=== PATIENT | female | born 2000 | race Caucasian/White ===

== ENCOUNTER 2021-01-07 02:05 | Day surgery (SDC) | payer OTHER, SELFPAY ==
[2020-12-31 15:37] VITALS: BMI 25.7
--- NOTE | 2021-01-05 08:32 | PM.IMHP ---
H&P: HPI History of Present Illness Date/Time: 01/05/21 08:32 patient presents for planned tonsillectomy. No changes in symptoms or medical history. Chief Complaint: chronic tonsillitis, recurrent tonsillitis Review of Systems Constitutional: Constitutional: Denies fatigue, Denies fever(s) and Denies lethargy Eyes: Eyes: Denies blurry vision and Denies change in vision ENT: Reports as per HPI Cardiovascular: Cardiovascular: Denies chest pain Respiratory: Respiratory: Denies cough Endocrine: Endocrine: Denies fatigue Hematologic/Lymphatic: Hematologic/Lymphatic: Denies easy bleeding, Denies easy bruising and Denies lymphadenopathy Allergic/Immunologic: Allergic/Immunologic: Denies seasonal rhinorrhea FOR[facility], [facility] Family History Family History Father Family history of alcoholism Social History Social History Smoking status: Never smoker Alcohol intake: never Substance use: current Substance use type: marijuana Other substance usage details: ONCE A MONTH Spiritual care concerns: No Meds Home Medications and Allergies Home Medications Medication Instructions Recorded Confirmed Type No Home Medications 06/06/19 12/31/20 History Allergies Allergy/AdvReac Type Severity Reaction Status Date / Time No Known Allergies Allergy Verified 12/31/20 16:08 Exam Const: General: cooperative, healthy appearing, comfortable, well developed and alert HENMT: Head: normal to inspection, normocephalic and atraumatic Ears: hearing grossly normal bilaterally, external ears normal, TM's normal bilaterally and EAC's normal General nose exam: Normal external nose present, Normal nares present, No nasal polyps present, Normal nasal mucous membranes and turbinates present and Normal septum present Face and sinus: normal facial exam Mouth: Yes Normal oral and palatal mucosa present, Yes lip normal, Yes tongue normal, Yes oropharynx normal and Yes moist mucous membranes Teeth and gingiva: dentition normal and gingiva normal Throat: posterior oropharynx normal, tonisls abnormal ( 3+ edematous cryptic stones) and uvula midline Eyes: General: appearance normal, both eyes and all related structures Periorbital: periorbital findings normal Eyelids: eyelids normal Conjunctivae: conjunctivae normal Sclera: sclerae normal Neck: Neck: normal visual inspection, full ROM and no lymphadenopathy Thyroid: thyroid normal Lymphatic: no lymphadenopathy noted Resp: Effort & Inspection: normal respiratory effort and able to speak in complete sentences Cardio: Jugular venous distension: no JVD Neuro: Cranial nerves: Yes CN's II-XII intact bilaterally Assessment and Plan Assessment and plan (1) Chronic tonsillitis: Code(s): J35.01 - Chronic tonsillitis Status: Acute Assessment and Plan: plan is for the OR for tonsillectomy. The risks were discussed in great detail including bleeding infection postoperative bleeding 3-5% need for further procedures tongue pain tongue numbness dental pain throat pain halitosis ear pain need for time off of work need for decreased activity. Patient voiced understanding of these risks and agreed (2) Recurrent tonsillitis: Code(s): J03.91 - Acute recurrent tonsillitis, unspecified Status: Acute
[2021-01-07] VITALS (7 sets, daily range): BP systolic 99–120; BP diastolic 50–81; PULSE 68–90; RESP 13–16; TEMP 36–36.9; O2SAT 100
[2021-01-07] MEDS: LACTATED RINGERS 1,000 ML 30 ML IV CONT (06:38)
--- NOTE | 2021-01-07 07:02 | WPDHPUPDATE1 ---
History and Physical Update Update Date/Time: 01/07/21 07:02 History and Physical has been reviewed, including an updated exam of the patient. There are NO changes in the patient's condition. Risks, benefits, and alternatives have been discussed and questions answered. Patient agrees to proceed with procedure.
--- NOTE | 2021-01-07 07:06 | WPDANESEPPF ---
Anes - Initial Pre Proc Eval Procedure: Operation Date: 01/07/21 07:30 Proposed Procedures p Tonsillectomy - Johnny Nash MD Date/Time: 01/07/21 07:06 Surgeon: Johnny Nash MD Pre Op Diagnosis: hypertrophic tonsils Patient Data Age: 20 Gender: F Height: 1.6 m Weight: 65.77 kg Allergies Allergy/AdvReac Type Severity Reaction Status Date / Time No Known Allergies Allergy Verified 12/31/20 16:08 Home Medications Medication Instructions Recorded Confirmed Type No Home Medications 06/06/19 12/31/20 History Patient hx anesthesia problems: none Family hx anesthesia problems: none PMFSH Past Medical History Medical History (Updated 01/07/21 @ 07:06 by Aric Parson MD) Overweight Surgical History Surgical History (Updated 01/07/21 @ 07:06 by Aric Parson MD) History of appendectomy Family History Family History Father Family history of alcoholism Social History Social History Smoking status: Never smoker Alcohol intake: never Substance use: current Substance use type: marijuana Other substance usage details: ONCE A MONTH Living arrangements: with family Spiritual care concerns: No Anes - Eval Final PreProcedure Day of Procedure 01/07/21 07:06 Patient weight: overweight Heart: regular rate and rhythm Lungs: clear to auscultation Airway: Mallampati scale class II Neurological: alert and oriented Last oral intake: >/= 8 hours ASA classification: II Emergent: no Anesthetic plan: proceed Anesthesia type and monitoring: general ETT and standard monitoring Informed Consent: The patient's anesthetic plan and its attendant risks and benefits were discussed with the patient/family/POA. Questions were solicited and answers provided to the satisfaction of the patient/family/POA.
[2021-01-07] MEDS: ACETAMINOPHEN 500 MG TABLET 1000 MG PO (07:35)
--- NOTE | 2021-01-07 08:01 | W.PM.PROC2 ---
Procedure Note - Detailed Date of Procedure 01/07/21 Pre-op Diagnosis hypertrophic tonsils, chronic tonsillitis, Recurrent tonsillitis Post-op Diagnosis same Procedure Performed tonsillectomy Surgeon Johnny Nash MD Adult Care Provider none Anesthesia general Indications recurrent tonsillitis chronic tonsillitis tonsillar hypertrophy Findings 2+ tonsils cryptic stones present endophytic Description of Procedure the patient was correctly identified and consent was verified in the preoperative holding area. The patient was then brought to the operating room and a time-out was performed. General anesthesia was induced and endotracheal tube was secured the patient's airway. The patient was then prepped and draped for the aforementioned procedures. A McIvor mouth gag was inserted in the airway bring the tonsils into view with the aforementioned findings noted the left was grasped with a curved Allis forceps and dissected in extracapsular plane using Bovie electrocautery at a setting of 10. Hemostasis was achieved using the intermittent application of Bovie suction electrocautery. The exact same procedure was performed on the right side with the exact same findings, the right tonsil was slightly larger and slightly more endophytic. The McIvor mouth gag was then lowered for 30 seconds and reopened reveal no bleeding. I performed all dictated portions of the procedure hemostasis was excellent there were no immediate complications care of the patient was turned over to Anesthesiology. Estimated Blood Loss 5 Drains No Packing No Pathology yes Complications No immediate complications Condition stable Disposition PACU
[2021-01-07] MEDS: fentaNYL CITRATE INJ (*CRX) 100 MCG/2 ML VIAL 25 MCG IV PUSH ×4 (08:23→08:43)
--- NOTE | 2021-01-07 08:34 | SUR.PHASEI ---
PT DROWSY, TALKATIVE. RESP EVEN UNLABORED. HOB ELEVATED 30 DEGREES.
== END 2021-01-07 10:05 | disposition home or self-care (01) ==
PROVIDERS: PCP Family Medicine; Visit Provider Otolaryngology
PROC: (CPT 42826; principal; 2021-01-07 07:30)
DX: J35.01 Chronic tonsillitis (principal); F12.90 Cannabis use, unspecified, uncomplicated
CPT/HCPCS: 42826; 88302; A9270; J0330; J1100; J2250; J2405; J2704; J3010; J7120

== ENCOUNTER 2023-01-10 11:33 | Emergency (ER) | payer OTHER, SELFPAY ==
--- NOTE | 2023-01-10 11:40 | ED.FEMALEGU ---
HPI - Female Genitourinary General Chief complaint: Urogenital-Female Stated complaint: Frequent urination; lower back & abdomen pain Time Seen by Provider: 01/10/23 11:40 Source: patient Mode of arrival: ambulatory Limitations: no limitations History of Present Illness HPI Narrative: Kathy is a 22-year-old female patient presenting to the clinic today with complaints of frequent urination, lower back pain, and abdominal discomfort that started yesterday. Patient reports no fever, chills, body aches, nausea, vomiting, or diarrhea. Last menstrual period was 3-4 weeks ago. No chance of per patient. Related Data Allergies Allergy/AdvReac Type Severity Reaction Status Date / Time No Known Allergies Allergy Verified 01/10/23 11:54 Review of Systems Review of Systems: Pertinent positives per HPI. Patient denies any fever, chills, rash, headache, visual changes, dizziness, cough, runny nose, sore throat, shortness of breath, chest pain, palpitations, nausea, vomiting, diarrhea, constipation, abdominal pain, or any urinary issues. PMFSH Past Medical History Medical History Overweight Recurrent tonsillitis Surgical History Surgical History History of appendectomy (~01/2016) History of tonsillectomy (~12/2020) Family History Family History Father Family history of alcoholism Social History Social History Smoking status: Never smoker Alcohol intake: never Substance use: current Substance use type: marijuana Other substance usage details: ONCE A MONTH Living arrangements: with family Spiritual care concerns: No Comments At the time of my signature, I reviewed and agree with the nursing past medical, surgical, social, and family history. There is no relevant family history pertinent to the patient complaint. Exam Narrative: General: Well-developed, well nourished, in no apparent distress. Head: Normocephalic, atraumatic. Cardio: Regular rate and rhythm, s1 and s2 normal, no murmur appreciated. Resp: Clear to auscultation bilaterally, no rhonchi, rales, wheezing or rubs. Abdomen: Soft, pliable, bowel sounds present in all quadrants, mild tender to palpation over the bladder, no organomegly, no CVAT tenderness. Course Course Emergency Course: Portions of this record may have been created with voice recognition software. Level of Care: Express Care Visit Vital Signs Vital signs: Vital signs reviewed MDM - Female Genitourinary MDM Narrative Medical decision making narrative: At the time of visit patient is resting comfortably on the exam table. UA dip was completed and patient was positive for leukocytes, blood, and protein. Possible early pyelonephritis, prescription for Bactrim DS and Pyridium was sent to the pharmacy. Supportive measures were discussed with the patient she voiced understanding discharge instructions agrees to treatment plan. Differential Diagnosis Differential diagnosis: Likely urinary tract infection, cystitis and other (Pyelonephritis) Discharge Plan Discharge Clinical Impression: Urinary tract infection Patient Disposition: Home, Self-Care Condition: Stable Instructions: Antibiotic Form, Urinary Tract Infection in Women (ED) Additional Instructions: UA positive for 3+ leukocytes, 2+ protein, and 2+ blood. We will send for culture. Take Bactrim ds 1 tablet every 12 hours x7 days Take Pyridium every 8 hours as needed for bladder pain x3 days Increase fluids and stay well hydrated Wipe front to back. May use wet wipes. Avoid tub baths If sexually active- pee before and after intercourse. Wear cotton panties Avoid tight clothing up against the genitals Follow up with your PCP in 1 week if symptoms
[2023-01-10 11:45] VITALS: BP 110/78; PULSE 92; RESP 16; TEMP 37; O2SAT 100
== END 2023-01-10 12:00 | disposition home or self-care (01) ==
PROVIDERS: Emergency Provider Nurse Practitioner Family
DX: N39.0 Urinary tract infection, site not specified (principal); F12.90 Cannabis use, unspecified, uncomplicated
CPT/HCPCS: 81003; 87077; 87086; 87088; 99213; G0463